=== PATIENT | female | born 1945 | race Caucasian/White ===

== ENCOUNTER 2019-04-12 22:34 | Emergency (ER) | payer MEDICARE ==
[~2019-04-12] VITALS: Ht 162.6 cm; Wt 70.3 kg
[2019-04-12] MEDS ORDERED: CARBIDOPA-LEVO1 EAC2 PO ×2 (22:38→22:45)
[2019-04-12] MEDS ORDERED: CLONAZEPAM 0.50.5 M1 PO (22:38)
[2019-04-12] MEDS ORDERED: CELEXA20 MG PO (22:38)
[2019-04-12] MEDS ORDERED: VITAMIN B-121000 MC3 IM (22:39)
[2019-04-12] MEDS ORDERED: FENOFIBRATE150 MG PO (22:39)
[2019-04-12] MEDS ORDERED: LASIX 40 MG TAB40 MG PO (22:39)
[2019-04-12] MEDS ORDERED: NEURONTIN 300M300 M2 PO ×2 (22:39→22:40)
[2019-04-12] MEDS ORDERED: HYDROCODON-ACE1 EAC8 PO ×2 (22:40→22:43)
[2019-04-12] MEDS ORDERED: LEVO-T75 MCG PO (22:40)
[2019-04-12] MEDS ORDERED: MIRALAX119 GM PO (22:40)
[2019-04-12] MEDS ORDERED: KLOR-CON 1010 MEQ PO (22:41)
[2019-04-12] MEDS ORDERED: OMEPRAZOLE40 MG PO (22:41)
[2019-04-12] MEDS ORDERED: VITAMIN E1000 UNIT PO (22:42)
[2019-04-12] MEDS ORDERED: VITAMIN D32000 UNIT PO (22:42)
[2019-04-12] MEDS ORDERED: FLOMAX0.4 MG PO (22:42)
[2019-04-12] MEDS ORDERED: REQUIP3 MG PO (22:42)
[2019-04-12] MEDS ORDERED: ASPERCREME1 EACH TOP (22:42)
[2019-04-12] MEDS ORDERED: LOPERAMIDE2 MG PO (22:43)
[2019-04-12] MEDS ORDERED: VOLTAREN GEL 1100 G1 TOP (22:43)
[2019-04-12] MEDS ORDERED: ZOFRAN4 MG PO (22:44)
[2019-04-12] MEDS ORDERED: TYLENOL325 MG PO (22:44)
[2019-04-12] MEDS ORDERED: KLONOPIN0.5 MG PO (22:44)
[2019-04-12] MEDS ORDERED: SEROQUEL 25 MG25 M1 PO (22:45)
[2019-04-13 01:57] VITALS: BP 144/87
== END 2019-04-13 01:57 | disposition home or self-care (01) ==
LOC: M.ERS 22:34
DX: S51.811A Laceration without foreign body of right forearm, initial encounter (principal); W06.XXXA Fall from bed, initial encounter; Y93.89 Activity, other specified; Y92.89 Other specified places as the place of occurrence of the external cause; Y99.8 Other external cause status; Z88.8 Allergy status to other drugs, medicaments and biological substances

== ENCOUNTER 2019-07-25 10:55 | Inpatient (IN) | payer MEDICARE, OTHER ==
[~2019-07-25] VITALS: Ht 162.6 cm; Wt 68.5 kg
[~2019-07-25 10:55] MED LIST: ASPERCREME1 EACH TOP; CARBIDOPA-LEVO1 EAC2 PO; CELEXA20 MG PO; CLONAZEPAM 0.50.5 M1 PO; FENOFIBRATE150 MG PO; FLOMAX0.4 MG PO; HYDROCODON-ACE1 EAC8 PO; KLONOPIN0.5 MG PO; KLOR-CON 1010 MEQ PO; LASIX 40 MG TAB40 MG PO; LEVO-T75 MCG PO; LOPERAMIDE2 MG PO; MIRALAX119 GM PO; NEURONTIN 300M300 M2 PO; OMEPRAZOLE40 MG PO; REQUIP3 MG PO; SEROQUEL 25 MG25 M1 PO; TYLENOL325 MG PO; VITAMIN B-121000 MC3 IM; VITAMIN D32000 UNI2 PO; VITAMIN E1000 UNIT PO; VOLTAREN GEL 1100 G1 TOP; ZOFRAN4 MG PO
[2019-07-25 10:56] VITALS: BP 103/60
[2019-07-25] MEDS ORDERED: DORYX MPC120 MG PO ×2 (11:01→11:05)
[2019-07-25] MEDS ORDERED: PROAIR HFA8.5 GM INH (11:05)
[2019-07-25] MEDS ORDERED: VITAMIN D32000 UNI2 PO (11:06)
[2019-07-25 11:27] LABS: ABSOLUTE BASOPHILS 0.1 thou/uL (0.0-0.2); ABSOLUTE EOSINOPHILS 0.1 thou/uL (0.0-0.7); ABSOLUTE LYMPHOCYTES 2.2 thou/uL (0.8-5.3); ABSOLUTE NEUTROPHILS 9.4 thou/uL (1.6-8.1); BASOPHILS 0.7 %; EOSINOPHILS 0.8 %; HEMATOCRIT 40.1 % (37.0-47.0); HEMOGLOBIN 13.5 gm/dL (12.0-15.0); LYMPHOCYTES 16.9 %; MCHC 33.6 g/dL (28.0-37.0); MPV 9.1 fl. (7.2-11.1); NUCLEATED RBCS 0 /100WBC; PLATELET COUNT* 227 thou/uL (150-400); POLYS 73.6 %; RBC 4.09 mil/uL (4.20-5.00); RDW-CV 14.7 % (10.5-14.5); WBC 12.7 thou/uL (4.0-11.0)
[2019-07-25 11:37] LABS: CALCIUM 9.9 mg/dL (8.5-10.1); CREATININE 2.8 mg/dL (0.6-1.3); POTASSIUM 3.4 mmol/L (3.5-5.1)
[2019-07-25 11:38] LABS: APTT 24.7 Seconds (25.0-31.3); INR 1.1; PROTIME 11.2 Seconds (9.20-11.50)
[2019-07-25 11:48] LABS: ALBUMIN 3.1 g/dL (3.4-5.0); TOTAL PROTEIN 6.9 g/dL (6.4-8.2)
[2019-07-25 13:43] VITALS: BP 105/70
[2019-07-25 14:45] VITALS: BP 126/72
[2019-07-25 16:00] VITALS: BP 111/62
--- NOTE | 2019-07-25 16:25 | 2DMMODE ---
[place] [address] 2 D/M-MODE ECHOCARDIOGRAM Name: JIMMY HARDY Room: [address] IN [facility]#: [id number] Admission: 07/25/19 Attend Phys: Deena Lui, Discharge: Date of : 43 Date of Service: 07/25/19 1624 Report #: [id number] THIS REPORT FOR: cc: Fly Walden MD, Todd A. MD Liston, Michael J. MD [facility] ~ APPROVED REPORT Study performed: 07/25/2019 15:29:13 EXAM: Comprehensive 2D, Doppler, and color-flow Echocardiogram Patient Location: In-Patient Room #: [facility] Status: routine BSA: 1.64 HR: 63 bpm BP: 105/70 mmHg Rhythm: NSR Other Information Study Quality: Good Indications Pleural Effusion 2D Dimensions IVSd: 12.02 (7-11mm) LVOT Diam: 18.40 (18-24mm) LVDd: 37.54 mm PWd: 11.72 (7-11mm) Ascending Ao: 31.06 (22-36mm) LVDs: 22.37 (25-40mm) Aortic Root: 28.52 mm Volumes Left Atrial Volume (Systole) LA ESV Index: 15.90 mL/m2 Aortic Valve AoV Peak Min.: 1.09 m/s AO Peak Gr.: 4.73 mmHg LVOT Max P.41 mmHg AO Mean Gr.: 2.49 mmHg LVOT Mean P.74 mmHg LVOT Max V: 0.92 m/s AO V2 VTI: 20.79 cm LVOT Mean V: 0.61 m/s CORNELIO (VTI): 2.50 cm2 LVOT V1 VTI: 19.51 [place] [address] 2 D/M-MODE ECHOCARDIOGRAM Name: JIMMY HARDY Room: [address] IN ..#: [id number] Admission: 07/25/19 Attend Phys: Deena Lui, Discharge: Date of : 43 Date of Service: 07/25/19 1624 Report #: [id number] Mitral Valve E/A Ratio: 0.73 MV Decel. Time: 269.35 ms MV E Max Min.: 0.60 m/s MV PHT: 78.11 ms MVA (PHT): 2.82 cm2 TDI E/Lateral E': 6.67 E/Medial E': 6.00 Medial E' Min.: 0.10 m/s Lateral E' Min.: 0.09 m/s Pulmonary Valve PV Peak Min.: 0.80 m/s PV Peak Gr.: 2.56 mmHg Tricuspid Valve RAP Estimate: 5.00 mmHg TR Peak Gr.: 15.88 mmHg RVSP: 20.00 mmHg PA Pressure: 20.00 mmHg Left Ventricle The left ventricle is normal size. There is normal LV segmental wall motion. Mild concentric left ventricular hypertrophy. Left ventricular systolic function is normal. LVEF is 60-65%. Grade I - abnormal relaxation pattern. Right Ventricle The right ventricle is normal size. The right ventricular systolic function is normal. Atria The left atrium size is normal. The right atrium size is normal. Aortic Valve The aortic valve is normal in structure. No aortic regurgitation is present. There is no aortic valvular stenosis. Mitral Valve The mitral valve is normal in structure. Mild mitral regurgitation. No evidence of mitral valve stenosis. Tricuspid Valve The tricuspid valve is normal in structure. Trace tricuspid regurgitation[place] [address] 2 D/M-MODE ECHOCARDIOGRAM Name: JIMMY HARDY Room: [address] IN [facility]#: [id number] Admission: 07/25/19 Attend Phys: Deena Lui, Discharge: Date of : 43 Date of Service: 07/25/19 1624 Report #: [id number] Pulmonic Valve The pulmonary valve is normal in structure. There is no pulmonic valvular regurgitation. Great Vessels The aortic root is normal in size. IVC is normal in size and collapses >50% with inspiration. Pericardium There is no pericardial effusion. <Conclusion> The left ventricle is normal size. Mild concentric left ventricular hypertrophy. Left ventricular systolic function is normal. LVEF is 60-65%. Grade I - abnormal relaxation pattern. Mild mitral regurgitation. Trace tricuspid regurgitation. No pulmonary hypertension. <ELECTRONICALLY SIGNED> By: Khanh Castro MD, FACC 07/25/19 1624 1624 1624 Khanh Castro MD, FACC /INF
[2019-07-25] MEDS ORDERED: IPRAT-ALBUT 0.5-3 ML INH (18:46)
[2019-07-25] MEDS ORDERED: ENSURE ENLIVE237 ML PO (18:47)
--- NOTE | 2019-07-25 19:32 | NUR ---
RECEIVED REPORT FRON YASMINE IN ED. PATIENT ASLEEP IN BED. PATIENT TURNED AND REPOSITIONING Q2. ALL SAFETY MEASURES MAINTAINED.
[2019-07-25 20:20] VITALS: BP 105/57
[2019-07-26 05:17] LABS: HEMATOCRIT 37.6 % (37.0-47.0); HEMOGLOBIN 12.7 gm/dL (12.0-15.0); MCH 32.8 pg (26.0-34.0); MCHC 33.9 g/dL (28.0-37.0); MCV 96.8 fL (80.0-100.0); MPV 8.9 fl. (7.2-11.1); RBC 3.88 mil/uL (4.20-5.00); RDW-CV 14.9 % (10.5-14.5); WBC 13.3 thou/uL (4.0-11.0)
[2019-07-26 05:40] LABS: ALBUMIN 2.6 g/dL (3.4-5.0); CALCIUM 8.5 mg/dL (8.5-10.1); MAGNESIUM 2.4 mg/dL (1.8-2.4); TOTAL BILIRUBIN 0.8 mg/dL (<0.1-1.0)
[2019-07-26 05:45] LABS: CREATININE 1.5 mg/dL (0.6-1.3)
--- NOTE | 2019-07-26 05:57 | NUR ---
PT SLEPT ALL NIGHT, RESPONDS TO VERBAL STIMULI, CAN ANSWER HER NAME AND YES OR NO QUESTIONS, ANSWERS THAT SHE IS AT "HOSPITAL". OPENS EYES ONLY BRIEFLY THEN BACK TO SLEEP. PT GIVEN SIP OF WATER AT HS WITH MUCH ENCOURAGEMENT SWALLOWS BUT FOLLOWED BY MOIST COUGH. PO MEDS HELD. ST TO EVAL. PT TURNED AND REPOSITONED Q2 HOURS AND PRN FOR SKIN CARE AND COMFORT. 3 LOOSE BROWN BM THIS SHIFT, INCONTINENT URINE. JOHNSON CARE GIVEN, BARRIER CREAM APPLIED. R HAND IVF INFUSING PER PUMP. AM LABS. DNR. O2 2L, RT TX GIVEN ORDERED. DENIES PAIN. BED ALARM ON FOR SAFETY, CALL LITE IN EASY REACH.
[2019-07-26 08:00] VITALS: BP 117/74
--- NOTE | 2019-07-26 10:41 | EKG ---
[place] [address] ELECTROCARDIOGRAM REPORT Name: JIMMY HARDY Room: [address] ADM IN [facility].#: [id number] Admission: 07/25/19 Attend Phys: Deena Lui, Discharge: Date of : 43 Date of Service: 07/25/19 1124 Report #: [id number] THIS REPORT FOR: //name// [facility] ED Test Date: 2019-07-25 Test Time: 11:24:50 Pat Name: JIMMY HARDY Department: Room: [facility] Gender: F Lamp Inspector: MS : 1945 Requested By: Wendi Pedraza Order Number: [id number] MD: Junior Banks Measurements Intervals [place] Rate: 56 P: 10 MA: 170 QRS: -41 QRSD: 86 T: 21 QT: 514 QTc: 497 Interpretive Statements Sinus bradycardia Inferior infarct, old Abnormal lateral Q waves Anterior infarct, old No previous ECG available for comparison Electronically Signed On 07-26-2019 10:40:02 PENSION MANAGER by Junior Banks [email or web address] <ELECTRONICALLY SIGNED> By: Junior Banks MD, [facility] 07/26/19 1040 1124 1124 Junior Banks MD, [facility] /EPI
--- NOTE | 2019-07-26 15:38 | NUR ---
Pt lives at [facility] memory care unit. Pt lives in [facility]. SW to continue to follow to assist with coordinating safe dc home when pt is ready to dc.
[2019-07-26 16:00] VITALS: BP 113/58
[2019-07-26 19:20] VITALS: BP 106/59
--- NOTE | 2019-07-26 19:23 | NUR ---
PATIENT AWAKE IN BED. PATIENT TURNED AND REPOSITIONED Q2. ALL SAFETY MEASURES MAINTAINED. PATIENT DENIES FURTHER NEEDS AT THIS TIME.
[2019-07-27 03:35] LABS: HEMATOCRIT 39.5 % (37.0-47.0); HEMOGLOBIN 13.3 gm/dL (12.0-15.0); MCHC 33.6 g/dL (28.0-37.0); MCV 98.5 fL (80.0-100.0); MPV 9.1 fl. (7.2-11.1); RBC 4.02 mil/uL (4.20-5.00); WBC 13.1 thou/uL (4.0-11.0)
[2019-07-27 03:56] LABS: CALCIUM 8.5 mg/dL (8.5-10.1); CREATININE 0.9 mg/dL (0.6-1.3); MAGNESIUM 2.3 mg/dL (1.8-2.4); POTASSIUM 3.7 mmol/L (3.5-5.1)
--- NOTE | 2019-07-27 05:12 | NUR ---
PT ORIENTED TO SELF. CONFUSED. FORGETFUL. DEMENTIA. PT WAS UP MOST OF SHIFT. SLEEP MEDS GIVEN. DIDN'T SEEM TO DO MUCH. PT INCONTINENT OF BOWEL AND BLADDER. 2 BM THIS SHIFT. Q2 TURN. RT ORDERED. MED GIVEN PER EMAR. FALL PRECAUTIONS IN PLACE. CALL LIGHT WITHIN REACH. WILL CONTINUE PLAN OF CARE.
[2019-07-27 08:13] VITALS: BP 127/82
--- NOTE | 2019-07-27 12:05 | NUR ---
ROSSANA spoke with Tiffany in admissions at [facility] about pt return to [facility] memory care unit at dc and that there is a possibility pt could be ready to dc tomorrow. ROSSANA faxed referral info to Tiffany at [facility]. [phone] fax [phone]
--- NOTE | 2019-07-27 15:59 | NUR ---
ASSUMED CARE OF PT AROUND 0730 THIS AM. REFER TO ASSESSMENT. PT HAS POOR APPETITE THIS SHIFT. OXYGEN SATURATION >92% ON 1L/NC. PT UP TO CHAIR WITH MAX ASSIST. WILL LEAVE PT UP FOR DINNER TO ENCOURAGE ORAL INTAKE. IVF INFUSING. VSS. NO OTHER CONCERNS AT THIS TIME. CLWR. WCTM.
[2019-07-27 16:31] VITALS: BP 106/62
[2019-07-27 19:30] VITALS: BP 153/76
--- NOTE | 2019-07-28 05:48 | NUR ---
PT ALERT AND ORIENTED. PT SLEPT WELL THIS SHIFT. MEDS GIVEN PER EMAR. ISOLATION PRECAUTION IN PLACE. ASSESSMENT DOCUMENTED. CALL LIGHT WITHIN REACH. WILL CONTINUE TO MONITOR.
--- NOTE | 2019-07-28 05:58 | NUR ---
PT ORIENTED TO SELF. VSS ON 1L. PT SLEPT WELL THIS SHIFT. INCONTINENT OF BOWEL AND BLADDER. FALL PRECAUTIONS IN PLACE. CALL LIGHT WITHIN REACH. HOURLY ROUNDINGS MADE. WILL CONTINUE TO MONITOR.
[2019-07-28 08:23] VITALS: BP 113/63
[2019-07-28 15:47] VITALS: BP 109/70
[2019-07-28 20:30] VITALS: BP 135/78
--- NOTE | 2019-07-29 06:15 | NUR ---
PT SLEPT ON AND OFF OVERNIGHT, AO TO SELF AND SITUATION AT TIMES, CONFUSED AND TALKING TO HERSELF WHILE AWAKE. TAKING MEDS WHOLE WITH WATER WITHOUT DIFFICULTY. PT PULLED OUT IV, NO IV ACCESS-TAKING PO ABX AND DC PLAN PENDING. INCONTINENT URINE OVERNIGHT, NO BM. AM LABS. PT TURNED AND REPOSITIONED Q2 HOURS AND PRN FOR SKIN CARE AND COMFORT. DENIES PAIN. CALL LITE IN EASY REACH, BED ALARM ON FOR SAFETY.
[2019-07-29 07:30] VITALS: BP 139/81
[2019-07-29 09:00] VITALS: BP 139/81
[2019-07-29] MEDS ORDERED: SYNTHROID100 MC1 PO (09:16)
[2019-07-29] MEDS ORDERED: AZITHROMYCIN 2250 MG PO (09:16)
[2019-07-29] MEDS ORDERED: ACIDOPHILUS1 EAC4 PO (09:16)
[2019-07-29] MEDS ORDERED: CEFDINIR300 MG PO (09:16)
[2019-07-29] MEDS ORDERED: PREDNISONE 20 M20 MG PO (09:16)
[2019-07-29 09:27] LABS: HEMATOCRIT 35.3 % (37.0-47.0); HEMOGLOBIN 12.1 gm/dL (12.0-15.0); MCH 33.3 pg (26.0-34.0); MCHC 34.3 g/dL (28.0-37.0); MPV 9.4 fl. (7.2-11.1); RBC 3.64 mil/uL (4.20-5.00); RDW-CV 14.6 % (10.5-14.5); WBC 9.1 thou/uL (4.0-11.0)
[2019-07-29 09:35] LABS: CALCIUM 8.8 mg/dL (8.5-10.1); CREATININE 0.8 mg/dL (0.6-1.3); MAGNESIUM 2.2 mg/dL (1.8-2.4); POTASSIUM 3.3 mmol/L (3.5-5.1)
[2019-07-29 15:47] VITALS: BP 139/81
[2019-07-29 16:00] VITALS: BP 123/64
--- NOTE | 2019-07-29 16:06 | NUR ---
SPOKE TO MILKA IN ADMISSIONS AT [facility]. NO ADMISSIONS CAN BE TAKEN OVER THE WEEKEND THERE IS NO ONE IN ADMISSIONS UNTIL WEDNESDAY. DR RODRIGUEZ AND NURSE NOTIFIED
--- NOTE | 2019-07-29 19:57 | NUR ---
PATIENT HERE FOR AMS AND ACUTE RENAL FAILURE. PATIENT NOT ORIENTED TO PLACE OR TIME. PATIENT HAD NO COMPLAINTS OF PAIN. PATIENT TURNED Q2 HOURS. BED ALARM ON. PATIENT WAS SUPPOSED TO GO TO SKILLED FACILITY, BUT STAFF SAID THEY WERE NOT AVAILABLE TO TAKE PATIENT TODAY WHEN CALLED.
[2019-07-29 20:30] VITALS: BP 155/85
--- NOTE | 2019-07-30 05:21 | NUR ---
PT SLEPT FAIRLY WELL OVERNIGHT. TAKING PILLS WHOLE WITH WATER WITHOUT DIFFICULTY. PT TURNED AND REPOSITIONED Q2 HOURS AND PRN FOR SKIN CARE AND COMFORT. INCONTINENT AT TIMES, JOHNSON CARE GIVEN AND BARRIER CREAM APPLIED. ASKED FOR BEDPAN ONCE AND WAS ABLE TO VOID PER BEDPAN.. NO IV ACCESS. PT TO DISCHARGE BACK TO [facility] TODAY. NO LABS THIS MORNING. VSS. HAS DENIED PAIN OR PROBLEMS. CALL LITE IN EASY REACH, BED ALARM ON FOR SAFETY.
[2019-07-30 08:30] VITALS: BP 148/86
[2019-07-30 16:35] VITALS: BP 117/73
[2019-07-30 16:53] VITALS: BP 102/57
--- NOTE | 2019-07-30 19:23 | NUR ---
PATIENT AWAKE IN BED. PATIENT TURNING AND REPOSITIONED Q2. ALL SAFETY MEASURES MAINTAINED. PATIENT DENIES FURTHER NEEDS AT THIS TIME.
[2019-07-30 19:45] VITALS: BP 120/51
--- NOTE | 2019-07-31 05:20 | NUR ---
PT SLEPT WELL OVERNIGHT WITHOUT COMPLAINTS. TAKING PILLS WHOLE WITH WATER. AO TO SELF AND SITUATION, CONFUSED AT TIMES-HX DEMENTIA. INCONTINENT URINE OVERNIGHT, JOHNSON CARE GIVEN,BARRIER CREAM AND NYSTATIN POWDER APPLIED ORDERED. PT TURNED AND REPOSITIONED Q2 HOURS AND PRN FOR SKIN CARE AND COMFORT. NO IV ACCESS. ANTICIPATING DISCHARGE BACK TO [facility] TODAY. CALL LITE IN EASY REACH, BED ALARM ON FOR SAFETY. O2 2L OVERNIGHT.
[2019-07-31 07:05] VITALS: BP 155/85
--- NOTE | 2019-07-31 10:56 | NUR ---
ROSSANA faxed dc summary/orders to admissions at [facility] and called and left a message for Tiffany in admissions at [facility] to discuss final dc arrangements for dc today.
[2019-07-31 11:06] VITALS: BP 139/81
[2019-07-31 15:10] VITALS: BP 139/81
== END 2019-07-31 15:05 | DRG 177 ==
LOC: M.ERS 10:55 → M.3W 12:35 → M.TBA-ER 12:35 → M.3W 14:16
PROVIDERS: Internal Medicine; Nurse Practitioner Family; ADMIT Internal Medicine
DX: J15.6 Pneumonia due to other Gram-negative bacteria (principal); J96.01 Acute respiratory failure with hypoxia; N17.9 Acute kidney failure, unspecified; G20 Parkinson's disease; F02.80 Dementia in other diseases classified elsewhere, unspecified severity, without behavioral disturbance, psychotic disturbance, mood disturbance, and anxiety; E03.9 Hypothyroidism, unspecified; K21.9 Gastro-esophageal reflux disease without esophagitis; I50.9 Heart failure, unspecified; E78.5 Hyperlipidemia, unspecified; F32.9 Major depressive disorder, single episode, unspecified; F41.9 Anxiety disorder, unspecified; G25.81 Restless legs syndrome; G47.00 Insomnia, unspecified; G89.29 Other chronic pain; N18.9 Chronic kidney disease, unspecified; M19.90 Unspecified osteoarthritis, unspecified site; Z79.899 Other long term (current) drug therapy; Z91.09 Other allergy status, other than to drugs and biological substances; Z88.0 Allergy status to penicillin; Z88.2 Allergy status to sulfonamides